=== PATIENT | female | born 1975 | race African-American/Black ===

== ENCOUNTER 2023-01-24 22:49 | Emergency (ER) | payer BC, OTHER ==
[2023-01-25] MEDS ORDERED: predniSONE 20 MG TAB ONE (01:55)
[2023-01-25 04:12] LABS: SARS-CoV-2 NAA Rapid Test Not Detected (NotDetected)
== END 2023-01-25 03:42 | disposition home or self-care (01) ==
LOC: ERS 22:49
DX: B34.9 Viral infection, unspecified (principal); I10 Essential (primary) hypertension; Z20.822 Contact with and (suspected) exposure to COVID-19; Z79.899 Other long term (current) drug therapy
CPT/HCPCS: 87081; 87430; 99283; J7512

== ENCOUNTER 2023-07-11 02:52 | Emergency (ER) | payer BC, OTHER ==
[2023-07-11] MEDS ORDERED: Acetaminophen 500 MG TAB ONE (04:25)
[2023-07-11 05:01] LABS: #Basophils Less than 0.03 10x3/uL (0.0-0.2); #Eosinphils Less than 0.03 10x3/uL (0.0-0.7); %Basophils 0.1 % (0.0-1.0); %Eosinophils 0.1 % (0.0-10.0); %Lymphocytes 14.5 % (21.0-51.0); %Monocytes 5.7 % (0.0-10.0); %Neutrophils 79.1 % (42.0-75.0); Hematocrit 32.3 % (36.0-47.0); Hemoglobin 10.4 g/dL (12.0-16.0); Mean Corpuscular HGB CONC 32.2 g/dL (32.0-36.0); Mean Corpuscular Hemoglobin 25.6 pg (27.0-31.0); Mean Corpuscular Volume 79.4 fL (78.0-98.0); Mean Platelet Volume 10.1 fL (7.4-10.4); Platelet Count 296 10x3/uL (130-400); RBC Distribution Width 15.7 % (11.5-14.5); Red Blood Cell (RBC) Count 4.07 mill/uL (4.20-5.40)
[2023-07-11] MEDS ORDERED: Ipratropium/Albuterol 3 ML NEB ONE (05:16)
[2023-07-11 05:17] LABS: ALT (SGPT) 147 U/L (8-55); AST (SGOT) 104 U/L (5-34); Albumin 3.3 g/dL (3.5-5.0); Alkaline Phosphatase 80 U/L (40-110); Anion Gap 16 mmol/L (10-20); BUN (Urea Nitrogen) 9 mg/dL (7.0-18.7); Bilirubin, Total 0.4 mg/dL (0.2-1.2); Calc. Creatinine Clearance 0 mL/min (70-130); Calcium 9.1 mg/dL (7.8-10.44); Carbon Dioxide 25 mmol/L (22-29); Chloride 105 mmol/L (98-107); Estimated GFR 90; Globulin 4.5 g/dL (2.4-3.5); Glucose 136 mg/dL (70-105); Protein, Total 7.8 g/dL (6.0-8.3); Sodium 142 mmol/L (136-145)
[2023-07-11 05:56] LABS: Influenza A by NAA Not Detected (NotDetected); Influenza B by NAA Not Detected (NotDetected); SARS-CoV-2 NAA Rapid Test Not Detected (NotDetected)
[2023-07-11 06:05] LABS: Troponin I 0.049 ng/mL (< 0.028)
[2023-07-11 09:23] LABS: Troponin I 0.053 ng/mL (< 0.028)
[2023-07-11] MEDS ORDERED: Iopamidol-370 76% 500 ML MDV (1 ML CHARGE) ONE (10:57)
== END 2023-07-11 10:20 | disposition home or self-care (01) ==
LOC: ERS 02:52
DX: I51.7 Cardiomegaly (principal); I10 Essential (primary) hypertension; I31.39 Other pericardial effusion (noninflammatory); J18.8 Other pneumonia, unspecified organism; R74.01 Elevation of levels of liver transaminase levels; R79.89 Other specified abnormal findings of blood chemistry; R59.0 Localized enlarged lymph nodes
CPT/HCPCS: 36415; 71045; 71275; 80053; 83605; 84484; 85025; 87040; 93005; 94640; J7620; Q9967

== ENCOUNTER 2023-07-15 23:58 | Emergency (ER) | payer BC ==
[2023-07-16 00:58] LABS: Hematocrit 33.8 % (36.0-47.0); Hemoglobin 10.7 g/dL (12.0-16.0); Mean Corpuscular HGB CONC 31.7 g/dL (32.0-36.0); Mean Corpuscular Hemoglobin 24.9 pg (27.0-31.0); Mean Corpuscular Volume 78.8 fL (78.0-98.0); Mean Platelet Volume 9.6 fL (7.4-10.4); Platelet Count 447 10x3/uL (130-400); Red Blood Cell (RBC) Count 4.29 mill/uL (4.20-5.40)
[2023-07-16 01:23] LABS: Anisocytosis SLIGHT = 6-15 cells HPF (0-5); Band 2 % (5-11); Hypochromia SLIGHT = 6-15 cells HPF (0-5); Lymphocytes 23 % (21-51); Microcytosis SLIGHT = 6-15 cells HPF (0-5); Monocytes 6 % (0-10); Neutrophil 68 % (42-75); Platelet Adequacy Comment Platelets Increased; Polychromasia SLIGHT = 2-3 cells HPF (0-2); Reactive Lymphocytes 1 % (0-10)
[2023-07-16 01:24] LABS: ALT (SGPT) 73 U/L (8-55); AST (SGOT) 34 U/L (5-34); Albumin 3.2 g/dL (3.5-5.0); Alkaline Phosphatase 81 U/L (40-110); Anion Gap 15 mmol/L (10-20); BUN (Urea Nitrogen) 6 mg/dL (7.0-18.7); Bilirubin, Total 0.5 mg/dL (0.2-1.2); Calc. Creatinine Clearance 0 mL/min (70-130); Calcium 9.8 mg/dL (7.8-10.44); Carbon Dioxide 28 mmol/L (22-29); Chloride 103 mmol/L (98-107); Estimated GFR 89; Globulin 4.7 g/dL (2.4-3.5); Glucose 116 mg/dL (70-105); Potassium 3.5 mmol/L (3.5-5.1); Protein, Total 7.9 g/dL (6.0-8.3); Sodium 142 mmol/L (136-145)
[2023-07-16 01:28] LABS: Troponin I 0.024 ng/mL (< 0.028)
== END 2023-07-16 02:55 | disposition home or self-care (01) ==
LOC: ERS 23:58
DX: R05.9 Cough, unspecified (principal); R79.89 Other specified abnormal findings of blood chemistry; I10 Essential (primary) hypertension
CPT/HCPCS: 36415; 80053; 83880; 84484; 85025; 93005